=== PATIENT | male | born 2000 | race Caucasian/White ===

== ENCOUNTER 2024-01-25 13:51 | Outpatient (CLI) | payer OTHER, SELFPAY ==
--- NOTE | ~2024-01-25 | XR_ITS ---
EXAMINATION: XR chest 2V Exam Date/Time: 01/25/2024 14:02 CDT HISTORY: MIDSTERNAL CP AFTER EXERTION, HX SMOKER Comparison: None. RESULT: Lines, tubes, and devices: None. Lungs and pleura: Clear. Cardiomediastinal silhouette: Normal. Other: No acute osseous or upper abdominal finding. IMPRESSION: No acute cardiopulmonary process. Reviewed, dictated and finalized at location K.
== END 2024-01-25 13:52 | disposition home or self-care (01) ==
LOC: ANHIMG 13:55
PROVIDERS: PCP Internal Medicine; Visit Provider Internal Medicine
DX: R07.9 Chest pain, unspecified (principal)
CPT/HCPCS: 71046

== ENCOUNTER 2024-02-20 09:23 | Outpatient (CLI) | payer OTHER, SELFPAY ==
--- NOTE | 2024-02-20 | ECHO_ITS ---
Patient Info Name: Blade Rodney Age: 23 years : 2000 Gender: Male Ht: 72 in Wt: 240 lbs BSA: 2.38 m2 HR: 43 bpm BP: 135 / 78 mmHg Heart Rhythm: Bradycardia Technical Quality: Good Exam Date: 02/20/2024 9:46 AM Exam Location: Echo Lab Patient Status: Outpatient Admit Date: 02/20/2024 Staff Ordering Physician: ElieMoiz MD Financial Services Officer: Simi Bran RDCS Attending Provider: BrandeeMoiz MD Exam Type: CA echo doppler color flow Study Info Indications - CHEST PAIN, UNSP Complete two-dimensional, color flow and Doppler transthoracic echocardiogram is performed. Summary 1. Complete two-dimensional, color flow and Doppler transthoracic echocardiogram is performed. 2. Left ventricular chamber dimension is mildly enlarged. 3. Left ventricular systolic function is normal, estimated at 60-65%. 4. The left ventricular diastolic function is grade I diastolic dysfunction. 5. E/e' 4 is not elevated. 6. There is trace tricuspid valve regurgitation. 7. No pulmonary hypertension, estimated pulmonary arterial systolic pressure is 21 mmHg. 8. There is trace pulmonic regurgitation. Left Ventricle E/e' 4 is not elevated. Left ventricular chamber dimension is mildly enlarged. Left ventricular systolic function is normal, estimated at 60-65%. The left ventricular diastolic function is grade I diastolic dysfunction. Right Ventricle Right ventricular systolic function is normal and with normal TAPSE 3.3 cm. Right ventricular chamber dimension is normal. Left Atria Left atrial chamber dimension is normal. Right Atria Right atrial chamber dimension is normal. Aortic Valve The aortic valve is trileaflet. There is no aortic valve stenosis. There is no aortic valve regurgitation. Pulmonic Valve There is trace pulmonic regurgitation. Mitral Valve There is no mitral valve stenosis. There is no mitral valve regurgitation. Tricuspid Valve There is trace tricuspid valve regurgitation. No pulmonary hypertension, estimated pulmonary arterial systolic pressure is 21 mmHg. Pericardium/Pleural There is no pericardial effusion. Inferior Vena Cava Normal inferior vena cava with >50% collapse upon inspiration consistent with normal right atrial pressure, 5 mmHg. Aorta The aortic root size at the sinus of Valsalva is normal. Left Ventricular Outflow Tract Name Value Normal LVOT 2D LVOT Diameter 2.1 cm LVOT Doppler LVOT Peak Gradient 3 mmHg LVOT Mean Gradient 2 mmHg LVOT VTI 19 cm LVOT VTI/AV VTI Ratio 0.7 LVOT Stroke Volume 63 ml LVOT CO 2.8 l/min LVOT CI 1.2 l/min/m2 Pulmonic Valve Name Value Normal PV Regurgitation Doppler MD Peak End Diastolic Velocity 88 cm/s Mitral Valve Name Value Normal MV Doppler MV Decel [place] 214 cm/s2 MV PHT 76 ms MV Area (PHT) 2.9 cm2 4.0-5.0 MV Diastolic Function MV E Peak Velocity 56 cm/s MV A Peak Velocity 101 cm/s MV E/A 0.6 MV Decel Time 263 ms MV Annular TDI MV E/e' (Septal) 6.0 <=8.0 MV E/e' (Lateral) 3.3 <=8.0 MV E/e' (Average) 4.7 Tricuspid Valve Name Value Normal TV Regurgitation Doppler TR Peak Velocity 197 cm/s TR Peak Gradient 7 mmHg Estimated PAP/RSVP RA Pressure 5 mmHg <=5 PA Systolic Pressure 21 mmHg <36 RV Systolic Pressure 21 mmHg <36 Aortic Valve Name Value Normal AV Doppler AV Peak Velocity 109 cm/s AV Peak Gradient 5 mmHg AV Mean Gradient 3 mmHg AV VTI 27 cm AV Area (Cont Eq VTI) 2.3 cm2 >=3.0 AV Area (Cont Eq Charan) 2.7 cm2 AV Regurgitation 2D LVOT Area 3.3 cm2 Ventricles Name Value Normal LV Dimensions 2D/MM IVS Diastolic Thickness (2D) 0.8 cm 0.6-1.0 LVID Diastole (2D) 5.9 cm 4.2-5.8 LVIW Diastolic Thickness (2D) 0.8 cm 0.6-1.0 LVID Systole (2D) 3.8 cm 2.5-4.0 LVOT Diameter 2.1 cm LV Mass (2D Cubed) 171.79 g 88.00-224.00 LV Mass Index (2D Cubed) 72 g/m2 49-115 Relative Wall Thickness (2D) 0.26 LV Fractional Shortening/Ejection Fraction 2D/MM LV Fractional Shortening (2D) 36 % 25-43 LV EF (2D Teicholz) 65 % 52-72 LV Diastolic Volume (4C MOD) 138 ml LV EF (4C MOD) 54 % LV Diastolic Volume (2C MOD) 126 ml LV EF (2C MOD) 70 % LV Diastolic Volume (BP MOD) 132 ml 62-150 LV Diastolic Volume Index (BP MOD) 55 ml/m2 34-74 LV Systolic Volume (BP MOD) 49 ml 21-61 LV Systolic Volume Index (BP MOD) 21 ml/m2 11-31 LV EF (BP MOD) 63 % 52-72 LV Diastolic Length (4C) 8.3 cm LV Systolic Length (4C) 6.7 cm LV Stroke Volume (4C MOD) 75 ml Atria Name Value Normal LA Dimensions LA Volume (4C A-L) 44 ml LA Volume (BP A-L) 55 ml RA Dimensions RA Area (4C) 14.1 cm2 <=18.0 Report Signatures
== END 2024-02-20 09:24 | disposition home or self-care (01) ==
LOC: ANHCARD 09:26
PROVIDERS: PCP Internal Medicine; Visit Provider Internal Medicine
DX: I51.89 Other ill-defined heart diseases (principal)
CPT/HCPCS: 93306